=== PATIENT | female | born 1980 | race Caucasian/White ===

== ENCOUNTER → 2023-04-21 | Outpatient (CLI) | payer OTHER, SELFPAY ==
--- NOTE | 2023-04-21 14:45 | FLU_PTH ---
PATIENT: CASEY THOMAS LOC: [facility] U#:[id number] AGE/SX: 43/F ROOM: RE04/21/[address]: Dr. Felipe Garcia MD : 1980 BED: DIS: 04/21/2023 SPEC #: [id number] RECD: 04/21/23 15:39 STATUS: JEWELL REQ #: [id number] ELIGIO: 04/21/23 14:[address]: Felipe Garcia DEPT: CYTOLOGY RECD BY: Betina Rivera ENTERED: 04/24/23 10:53 SP TYPE: Fluid OTHR DR: Dr. Merrick Santiago DO Tissues: A - Thyroid gland, NOS B - Thyroid gland, NOS C - Thyroid gland, NOS D - Thyroid gland, NOS Procedures: Special Stain Group II Surgery Specimen Level IV Cytospin Fluid Cytology Other HEADER OPERATION: Ultrasound-guided fine needle aspiration, bilateral thyroid PRE-OP DIAGNOSIS: Multiple thyroid nodules TISSUE SUBMITTED: A - FNA right inferior thyroid x4 slides, B - FNA right inferior thyroid fluid, C - FNA left mid thyroid x4 slides, D - FNA left mid thyroid fluid DIAGNOSIS CYTOLOGY A. Right inferior thyroid, fine needle aspiration (smears): Nondiagnostic specimen (Sims Category I). Bloody smears, See comment. B. 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 Adequate for evaluation. See comment. C. Left mid thyroid, fine needle aspiration (smears): Consistent with benign follicular/colloid nodule (Sims Category II). Adequate for evaluation. See comment. D. Left mid thyroid fluid, fine needle aspiration (cytospin and cell block): Negative for malignant cells. See comment. SJ:rg 04/25/2023 COMMENT D. The specimen consists of scant colloid. Correlation with clinical, radiologic findings and appropriate follow up are necessary. The Sims System for thyroid diagnostic categorization was used in the evaluation of this case. CYTOLOGY STUDY Slides are reviewed. CYTOLOGY GROSS A - Received are four smears labeled with the patient's name and designated per the requisition as right inferior thyroid. Submitted for staining. B - Received is 10 ml of red cloudy fluid labeled with the patient's name and and designated per the requisition as right inferior thyroid. Submitted for cytology preparation including cell block. C - Received are four smears labeled with the patient's name and designated per the requisition as left mid thyroid. Submitted for staining. D - Received is 30 ml of red cloudy fluid labeled with the patient's name and and designated per the requisition as left mid thyroid. Submitted for cytology preparation including cell block. / sybil 04/24/2023 TC:5 CPT: 24292 x4, 82104 x2
== END | disposition home or self-care (01) ==
LOC: LABSPEC 15:47
PROVIDERS: PCP Student in an Organized Health Care Education/Training Program; Referring Provider Surgery; Visit Provider Surgery
DX: E04.2 Nontoxic multinodular goiter (principal)
CPT/HCPCS: 88108; 88161; 88305; 88313

== ENCOUNTER → 2024-02-15 | Outpatient (CLI) | payer OTHER, SELFPAY ==
--- NOTE | 2024-02-15 14:37 | US_ITS ---
STUDY: THYROID ULTRASOUND REASON FOR EXAM: Female, 43 years old. Thyroid nodules. TECHNIQUE: Ultrasound evaluation of the thyroid was performed with real-time and static castro-scale imaging. COMPARISON: None. FINDINGS: RIGHT LOBE: The right lobe of the thyroid gland measures 5 cm x 1.4 cm x 1.5 cm. There is a heterogeneous echotexture. Multiple solid/cystic nodules are seen throughout the right lobe of the thyroid. The largest is in the lower pole and measures 2 cm x 1.4 cm by 1.1 cm. LEFT LOBE: The left lobe of the thyroid gland measures 4.2 cm x 1.4 cm x 1.3 cm. There is a heterogeneous echotexture. Multiple solid/cystic nodules are seen throughout the left lobe of the thyroid. The largest is in the lower pole and measures 1.5 cm x 0.8 cm x 0.8 cm. ISTHMUS: The isthmus measures 4 mm. The regional lymph nodes are normal. US/Thyroid IMPRESSION: Heterogeneous appearance of both lobes of thyroid with the several solid/cystic nodules. The dominant one in the lower pole of the right lobe of the thyroid measures 2 cm x 1.4 signs by 1.1 cm. The dominant complex nodule in the left lobe measures 1.5 cm x 0.8 cm x 0.8 cm. Correlation with a nuclear medicine thyroid scan/uptake recommended. Electronically Signed: Pavel Dempsey MD at 8:26 EDT ,
== END | disposition home or self-care (01) ==
PROVIDERS: PCP Student in an Organized Health Care Education/Training Program; Referring Provider Surgery; Visit Provider Surgery
DX: E04.1 Nontoxic single thyroid nodule (principal)
CPT/HCPCS: 76536

== ENCOUNTER → 2024-03-08 | Outpatient (CLI) | payer OTHER, SELFPAY ==
[2024-03-08 16:33] LABS: Free T3 2.9 pg/mL (2.18-3.98); T4 Total, Thyroxin 8.1 ug/dL (4.8-13.9); Thyroid Stim Hormone (TSH) 0.91 uIU/mL (0.358-3.74)
== END | disposition home or self-care (01) ==
LOC: LAB 14:51
PROVIDERS: PCP Student in an Organized Health Care Education/Training Program; Referring Provider Surgery; Visit Provider Surgery
DX: E04.2 Nontoxic multinodular goiter (principal)
CPT/HCPCS: 36415; 84436; 84443; 84481

== ENCOUNTER → 2025-02-11 | Outpatient (CLI) | payer OTHER, SELFPAY ==
--- NOTE | 2025-02-11 17:11 | US_ITS ---
PROCEDURE: THYROID 02/11/2025 REASON FOR EXAM: YEARLY TECHNIQUE: THYROID COMPARISON: 02/15/2024 FINDINGS: Right thyroid lobe size: 4.9x1.7x1.6 cm. Complex rounded nodule 1.6x1.3x1 cm is seen at lateral / inferior pole with intra vascualrity. A 0.8x0.9x0.7 cm mid pole complex rounded nodule. Left thyroid lobe size: 4.5x1.6x1.7 cm A 0.6x0.5x0.4 cm lateral/inferior pole complex hypoechoic nodule with no vascularity. A 0.5x0.4x0.4 cm lateral /inferior pole complex hypoechoic nodule with intravasculairty. Isthmus: 0.4 cm US/Thyroid IMPRESSION: Bilateral thyroid nodules. Progressed as compared. Right lobe TR3 nodule. Left lobe TR4 nodule. RECOMMENDATION: Based on most suspicious nodule. Nodule size = largest diameter Only evaluate nodule if =>5 mm. Growth > 20% in 2 dimensions = worsening. Follow up to 4 nodules. Recommend biopsy for no more than 2 nodules. Reading Location: [facility] [place] [address]
== END | disposition home or self-care (01) ==
PROVIDERS: PCP Student in an Organized Health Care Education/Training Program; Referring Provider Internal Medicine Endocrinology, Diabetes & Metabolism; Visit Provider Internal Medicine Endocrinology, Diabetes & Metabolism
DX: E04.1 Nontoxic single thyroid nodule (principal); E88.819 Insulin resistance, unspecified; Z13.1 Encounter for screening for diabetes mellitus
CPT/HCPCS: 76536